=== PATIENT | female | born 1980 | race Caucasian/White ===

== ENCOUNTER 2016-05-31 20:09 | Emergency (ER) | payer SELFPAY ==
[2016-05-31 20:40] VITALS: BP 103/72; TEMP 97.2; O2SAT 96
[2016-05-31] MEDS ORDERED: LIDOCAINE 1% 10 ML VIAL INJ ONE (21:56)
== END 2016-05-31 21:20 | disposition left against medical advice (07) ==
LOC: ER 20:09
DX: Z53.21 Procedure and treatment not carried out due to patient leaving prior to being seen by health care provider (principal)

== ENCOUNTER 2017-06-24 12:11 | Emergency (ER) | payer SELFPAY ==
[2017-06-24 12:35] VITALS: BP 128/87; TEMP 97.9; O2SAT 96
--- NOTE | 2017-06-24 12:49 | ED.PDOC ---
History of Present Illness - General Chief Complaint: Neck Injury/Pain Stated Complaint: neck and shoulder pain Time Seen by Provider: 06/24/17 12:47 Additional Information: 36 YEAR OLD COMPLAINT OF RIGHT SIDED NECK PAIN RADIATING TO THE RIGHT ARM GETTING WORSE OVER 2 WEEKS SHE HAS SEEN A CHIROPRACTOR AND TAKES ROBAXIN HYDROCODONE NSAID WITH NO RELEIF NO RECENT TRAUMA PAIN IS WORSE WITH TURNING OF HER NECK - History of Present Illness Timing/Duration: 1 week Severity: moderate Improving Factors: immobilization Worsening Factors: movement Associated Symptoms: denies symptoms Allergies/Adverse Reactions: Allergies NO KNOWN ALLERGY Allergy (Verified 07/19/15 13:37) Home Medications: Ambulatory Orders Buspar 21 mg PO BID 07/19/15 Duloxetine HCl [Cymbalta] 60 mg PO DAILY 07/19/15 Lisinopril 20 mg PO DAILY 07/19/15 Methocarbamol [Robaxin] 500 mg PO PRN 07/19/15 Hydrocodone/Acetaminophen 10-325 mg 10 - 325 PO PRN PRN 05/31/16 Trazodone HCl 50 mg PO DAILY 05/31/16 Review of Systems - Review of Systems Constitutional: States: no symptoms reported EENTM: States: no symptoms reported Respiratory: States: no symptoms reported Cardiology: States: no symptoms reported Gastrointestinal/Abdominal: States: no symptoms reported Genitourinary: States: no symptoms reported Musculoskeletal: States: no symptoms reported Skin: States: no symptoms reported Neurological: States: no symptoms reported, numbness, tingling Endocrine: States: no symptoms reported Hematologic/Lymphatic: States: no symptoms reported Past Medical History (General) - Patient Medical History Hx Stroke: No Hx Asthma: Yes Hx Congestive Heart Failure: No Hx Hypertension: Yes Hx Diabetes: No Hx Cancer: No Hx Hepatitis C: No Surgical History: Hysterectomy - Vaccination History Hx Tetanus, Diphtheria Vaccination: Yes Hx Influenza Vaccination: No Hx Pneumococcal Vaccination: No - Social History Hx Tobacco Use: Yes Hx Alcohol Use: No Hx Substance Use: Yes Hx Substance Use Treatment: Yes Hx Depression: Yes - Female History Patient : No - Partial hysterectomy Family Medical History - Family History Mother Family History: Unknown Physical Exam - Physical Exam General Appearance: Alert, Obvious distress Eye Exam: bilateral normal Ears, Nose, Throat: hearing grossly normal, normal ENT inspection, normal pharynx Neck: non-tender, full range of motion, supple Gastrointestinal/Abdominal: normal bowel sounds, non tender, soft 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 Copy, Patient Portal Self Enrollment Referrals: ALONDRA NIETO [Primary Care Provider] - 1-2 Weeks Home Medications: Ambulatory Orders Buspar 21 mg PO BID 07/19/15 Duloxetine HCl [Cymbalta] 60 mg PO DAILY 07/19/15 Lisinopril 20 mg PO DAILY 07/19/15 Methocarbamol [Robaxin] 500 mg PO PRN 07/19/15 Hydrocodone/Acetaminophen 10-325 mg 10 - 325 PO PRN PRN 05/31/16 Trazodone HCl 50 mg PO DAILY 05/31/16
[2017-06-24] MEDS: KETOROLAC TROMETHAMINE INJ 60 MG/2 ML VIAL IM ONE (12:54)
[2017-06-24] MEDS: DEXAMETHASONE INJ 10 MG/ML VIAL IM ONE (12:54)
== END 2017-06-24 13:25 | disposition home or self-care (01) ==
LOC: ER 12:11
DX: M54.2 Cervicalgia (principal); M25.511 Pain in right shoulder; I10 Essential (primary) hypertension; Z87.891 Personal history of nicotine dependence
CPT/HCPCS: J1100; J1885

== ENCOUNTER → 2018-08-07 | Outpatient (CLI) | payer SELFPAY ==
--- NOTE | 2018-08-08 07:51 | MRI ---
EXAM DESCRIPTION: Lumbar Spine w/o Contrast : Magnetic Resonance Imaging. CLINICAL HISTORY: LORDOSIS UNSPECIFIED SITE COMPARISON: MRI scan cervical spine on the same visit. TECHNIQUE: Multiplanar, multiple standard sequences, non contrast MRI, lumbar spine. FINDINGS: L5-S1: Disc desiccation and minimal disc space loss. Posterior midline disc bulge containing hyperintense T2 signal consistent with annular fissure. Minimal effacement of the left subarticular recess. Bilateral Modic type I endplate reactive changes more on the left than the right. 2 mm grade 1 retrolisthesis. AP canal diameter 11 mm. Borderline left foraminal stenosis with moderate right foraminal narrowing. L4-5: Unremarkable. L3-4: Unremarkable. L2-3: Unremarkable. L1-2: Unremarkable. T12-L1: Conus terminates at this level. Otherwise unremarkable. No scoliosis. Paravertebral soft tissues negative.. Normal marrow signal in the remaining vertebral bodies and the posterior elements. Vertebral bodies are not compressed at any level. IMPRESSION: 1. Posterior midline L5-S1 disc bulge with annular fissure abutting the thecal sac with minimal effacement of the left subarticular recess. Bilateral minimal spondylosis more on the left. Borderline left foraminal stenosis. Correlate for left L5 radiculopathy. Moderate canal narrowing. Electronically signed by: Jerry Chan MD 08/08/2018 7:48 AM CDT
--- NOTE | 2018-08-08 08:02 | MRI ---
EXAM DESCRIPTION: Cervical Spine: MRI. CLINICAL HISTORY: 37 years Female LORDOSIS DEFORMITY OF SPINE COMPARISON: Noncontrast MRI scan of lumbar spine on this visit. TECHNIQUE: Multiplanar, high-field MRI, multiple sequences, non-contrast Cervical spine. FINDINGS: C5-C6: Decreased disc space anteriorly with posterior broad-based disc bulge more to the right of midline. AP canal diameter 6 mm. Left uncinate spur and narrowing of the left neural foramen. C4-C5: Minimal disc desiccation. Posterior midline hyperintense T2 signal annular fissure in the disc. Minimal bulge of the disc into the left foramen with mild narrowing. Canal mildly narrowed. Right neuroforamen patent. Minimal hypertrophic arthrosis left facet; right facet joint unremarkable. Normal signal in the remaining discs with no bulging. Disc spaces preserved. Canal and neural foramina are patent. Facet joints . Spinal alignment kyphotic at C5-C6. No cord compression or cord edema. Atlantoaxial joint negative.. Base of the cerebellar tonsils is at the level of the foramen magnum. Paravertebral soft tissues unremarkable.. Vertebral bodies are not compressed at any level. Normal marrow signal in the remaining vertebral bodies and the posterior elements. IMPRESSION: 1. C5-C6 disc degenerating with posterior midline bulge and mild to moderate central canal stenosis. Mild narrowing left neural foramen. 2. Posterior midline annular fissure C4-5 disc and minimal disc bulge into the left foramen with mild narrowing. 3. Kyphosis of the cervical spine may be due to muscle spasm. Electronically signed by: Jerry Chan MD 08/08/2018 7:58 AM CDT
== END ==
LOC: MRI 08:00
PROVIDERS: ATTEND Emergency Medicine
DX: M40.50 Lordosis, unspecified, site unspecified (principal); M48.02 Spinal stenosis, cervical region; M50.921 Unspecified cervical disc disorder at C4-C5 level; M50.922 Unspecified cervical disc disorder at C5-C6 level; M51.87 Other intervertebral disc disorders, lumbosacral region; M47.897 Other spondylosis, lumbosacral region

== ENCOUNTER → 2019-03-21 | Outpatient (CLI) | payer SELFPAY ==
--- NOTE | 2019-03-21 15:57 | MRI ---
EXAM DESCRIPTION: Cervical Spine: MRI. CLINICAL HISTORY: 38 years Female RADICULOPATHY CERVICAL REGION COMPARISON: Noncontrast MRI scan cervical spine July 2018. TECHNIQUE: Multiplanar, high-field MRI, multiple sequences, non-contrast Cervical spine. FINDINGS: C4-C5: Disc desiccation and minimal disc space loss. No significant bulge, but posterior midline hyperintense T2 annular fissure. Stable since the prior study. C5-C6: Disc desiccation and moderate disc space loss. Anterior disc bulge and endplate ridging. Posterior disc bulge and endplate spurs in the midline into the right of midline with right posterior 4 mm protrusion and right uncinate spur. Abutting the right C6 nerve. Borderline right paracentral canal stenosis. Moderate right neural foraminal narrowing. Left uncinate spur with mild left neural foraminal narrowing. No change from the prior study. Normal signal in the remaining discs with no bulging. Disc spaces preserved. Canal and neural foramina are patent. Facet joints negative. Spinal alignment kyphosis C2-C6. No cord compression or cord edema. Atlantoaxial joint minimal arthrosis and hypertrophy.. Base of the cerebellar tonsils is at the level of the foramen magnum. Paravertebral soft tissues are negative. Vertebral bodies are not compressed at any level. Normal marrow signal in the remaining vertebral bodies and the posterior elements. IMPRESSION: 1. Small posterior midline annular fissure C4-C5 with no significant bulging. No canal or neural foraminal stenosis. 2. Right posterior C5-6 disc bulge with osteophyte and borderline right mild canal stenosis. Disc osteophyte is abutting the right C6 nerve.. Right neuroforamen is patent. Stable since the prior study. Electronically signed by: Jerry Chan MD 03/21/2019 3:55 PM [facility]
--- NOTE | 2019-03-21 16:25 | MRI ---
EXAM DESCRIPTION: Thoracic Spine w/o Contrast: Magnetic Resonance Imaging. CLINICAL HISTORY: RADICULOPATHY THORACIC REGION COMPARISON: MRI scan of the cervical spine on this visit TECHNIQUE: Multiplanar, multiple standard sequences, non contrast MRI, thoracic spine. FINDINGS: All discs with normal signal. Disc spaces are preserved. Canal and foramina are patent. No scoliosis. Facet joints are unremarkable. Conus terminates T12. Cord with normal signal, no compression. Paravertebral soft tissues are unremarkable. Circumscribed hyperintense T1 and T2 hemangioma is in the T6 vertebral body, T7 vertebral body, and T11 vertebral body abutting the inferior endplate. Otherwise normal marrow signal in the remaining vertebral bodies and the posterior elements. Vertebral bodies are not compressed at any level. IMPRESSION: Noncontrast MRI scan of the thoracic spine with no significant abnormalities. Electronically signed by: Jerry Chan MD 03/21/2019 4:24 PM [facility]
== END ==
LOC: MRI 10:26
PROVIDERS: ATTEND Emergency Medicine
DX: M50.121 Cervical disc disorder at C4-C5 level with radiculopathy (principal); M50.122 Cervical disc disorder at C5-C6 level with radiculopathy

== ENCOUNTER → 2019-04-09 | Outpatient (CLI) | payer SELFPAY ==
--- NOTE | 2019-04-09 16:46 | US ---
EXAM DESCRIPTION: Breast,Left: Ultrasound CLINICAL HISTORY: 38 yearsFemaleLEFT SIDE BREAST LUMP . No personal history of breast cancer. Tenderness in the left breast upper and left axilla. Remote family history of breast cancer. Menarche age 17. Childbirth age 23. Postmenopausal 30. No HRT Lifetime risk of developing breast cancer (Tyrer-Cuzick model)(%): 8.4. COMPARISON: None. TECHNIQUE: Transcutaneous scanning of the left breast utilizing tavares-scale and Doppler modes. Scanning performed by the guard rail installer only. FINDINGS: Ultrasound: Scanning of the upper-outer quadrant of the left breast, 12:00 to 2:00. Mostly fibroglandular tissues with minimal fatty tissues. No dominant solid mass or distinct cyst. No parenchymal edema or large calcifications. No overlying skin changes. IMPRESSION: No suspicious or significant clinical findings. BI-RADS CATEGORY: 1 - NEGATIVE FOLLOW UP: The region of interest should be followed on clinical grounds and if noted to change in size or character, a repeat directed follow-up ultrasound examination may be performed. Written communication explaining the findings and follow-up, will be mailed to the patient and referring health care provider. According to the [employer], yearly mammograms are recommended starting at age 40 and continuing as long as a woman is in good health. Any breast change noted on a breast self-exam should be reported promptly to the patient's healthcare provider. Breast MRI is recommended for women with an approximately 20-25% or greater lifetime risk of breast cancer, including women with a strong family history of breast or ovarian cancer and women who have been treated for Hodgkin's disease. Extremely dense breast tissue limits the sensitivity of digital mammography. Electronically signed by: Jerry Chan MD 04/09/2019 4:44 PM [facility]
== END ==
LOC: US 09:57
PROVIDERS: ATTEND Emergency Medicine
DX: N63.20 Unspecified lump in the left breast, unspecified quadrant (principal)

== ENCOUNTER → 2019-09-29 | Outpatient (CLI) | payer OTHER, SELFPAY ==
--- NOTE | 2019-09-29 16:32 | MAM ---
EXAM DESCRIPTION: 3D Diagnostic, Bilateral (accession [id number]), Breast,Bilateral (accession [id number]): Ultrasound CLINICAL HISTORY: 38 yearsFemaleABNORMAL CLINICAL BREAST EXAM . Palpable lump left breast. No personal history of breast cancer. Remote family history of breast cancer. Menarche age 17. Childbirth age 24. Menopause age 30. No HRT. Lifetime risk of developing breast cancer (Tyrer-Cuzick model)(%): 8.4. COMPARISON: None. TECHNIQUE: Bilateral LM, CC, and MLO projection full-field images, digital tomosynthesis technique. Bilateral 2-D digital full-field images: LM, CC, and MLO projections. CAD available for 2-D images.. Transcutaneous scanning of the bilateral breasts utilizing tavares-scale and Doppler modes. Scanning performed by the airplane fueler and Dr. Chan. FINDINGS: The breast parenchymal density pattern is: Heterogeneously dense breast tissue, which may obscure small masses. No skin thickening or nipple retraction skin marker noted posterior third of the left breast upper outer quadrant approximately 8 cm from the nipple, approximately 2:00. Focal asymmetry visualized medial and slightly posterior to the skin marker. Focal asymmetry in the middle third of the upper-outer quadrant of the right breast approximately 9 cm from the nipple, approximately 10:00. Not associated with microcalcifications. Ultrasound: Scanning of the right breast at the 10:00 position 8 cm from the nipple. Mostly fibroglandular tissues with minimal surrounding fatty tissues. No dominant solid mass, no distinct cyst, no fluid collection, and no large calcifications. No overlying skin changes. Scanning of the left breast at the 2:00 position 8 cm from the nipple. Focal fibroglandular tissues predominantly 8 with peripheral fatty tissues. No dominant solid mass, no distinct cyst, no fluid collection, no large calcifications. No overlying skin changes. IMPRESSION: Benign exam. BIRAD CATEGORY: 2 BENIGN FINDINGS. RECOMMENDATIONS: FOLLOW UP: Routine digital bilateral mammographic screening, one year interval from September 2019. Written communication explaining the IMPRESSION and follow-up, will be mailed to the patient and referring health care provider. According to the [employer], yearly mammograms are recommended starting at age 40 and continuing as long as a woman is in good health. Any breast change noted on a breast self-exam should be reported promptly to the patient's healthcare provider. Breast MRI is recommended for women with an approximately 20-25% or greater lifetime risk of breast cancer, including women with a strong family history of breast or ovarian cancer and women who have been treated for Hodgkin's disease. A negative mammographic report should not delay tissue diagnosis in patients with significant clinical history or physical findings. Extremely dense breast tissue limits the sensitivity of digital mammography. Electronically signed by: Jerry Chan MD 09/29/2019 4:30 PM CDT
== END ==
LOC: US 09:00
PROVIDERS: ATTEND Family Medicine
DX: R68.89 Other general symptoms and signs (principal)
CPT/HCPCS: 76641; 77066; G0279

== ENCOUNTER → 2019-11-24 | Outpatient (CLI) | payer OTHER, SELFPAY ==
--- NOTE | 2019-11-24 15:12 | MRI ---
Study: MRI of the Right Knee. Indication: PAIN IN RIGHT KNEE Technique: Multiplanar, multi sequence MRI of the right knee was obtained without intravenous contrast. Comparison: None Findings: ACL, PCL, MCL, and lateral collateral ligament complex intact. Oblique undersurface tearing posterior horn medial meniscus with free edge fraying of the body. Mild reactive edema in the underlying medial tibial plateau. Grade 2 and 3 chondral thinning throughout the medial compartment grade 2 changes lateral compartment. Lateral meniscus intact. Low-grade tendinosis quadriceps tendon insertion. Patellar tendon intact. Patella normally located. Grade 3 chondral fissuring central aspect medial patellar facet. Adjacent minimal thickening patellar plica Tiny effusion. No acute fracture. Tiny Quiroz's cyst. Impression: Oblique undersurface tear posterior horn medial meniscus with free edge fraying body. Grade 2-3 chondral thinning medial compartment with grade 2 changes lateral compartment. Low-grade tendinosis quadriceps tendon insertion. Grade 3 chondral fissuring central aspect medial patellar facet with adjacent minimal thickening medial patellar plica. Tiny effusion. Electronically signed by: Dominic Rodriguez MD 11/24/2019 3:11 PM CDT
== END ==
LOC: MRI 09:59
PROVIDERS: ATTEND Emergency Medicine
DX: S83.241A Other tear of medial meniscus, current injury, right knee, initial encounter (principal); M94.261 Chondromalacia, right knee; M76.891 Other specified enthesopathies of right lower limb, excluding foot; M24.10 Other articular cartilage disorders, unspecified site; M25.461 Effusion, right knee

== ENCOUNTER → 2020-04-19 | Outpatient (CLI) | payer MEDICAID ==
--- NOTE | 2020-04-19 13:47 | RAD ---
EXAM: Pelvis INDICATION: 39 years Female, PAIN IN RIGHT HIP COMPARISON: None available FINDINGS: Single view of the pelvis was performed. Mild degenerative change in the hips. No fracture or dislocation. The sacroiliac joints and pubic symphysis are intact. Pelvic phleboliths are noted. IMPRESSION: Mild degenerative change in both hips without fracture or dislocation. Electronically signed by: Monserrat Pinon MD 04/19/2020 1:46 PM [facility]
--- NOTE | 2020-04-19 13:52 | RAD ---
EXAM DESCRIPTION: Knee,Right Complete CLINICAL HISTORY: PAIN IN RIGHT KNEE COMPARISON: None. IMPRESSION: 4 standing views of the right knee show no acute fracture, focal bone destruction, or joint dislocation. Soft tissues is unremarkable. No joint effusion. No advanced arthrosis. Electronically signed by: Beck Melendez MD 04/19/2020 1:50 PM [facility]
== END ==
LOC: RAD 09:15
PROVIDERS: ATTEND Orthopaedic Surgery
DX: M16.0 Bilateral primary osteoarthritis of hip (principal); M25.561 Pain in right knee